=== PATIENT | female | born 1935 | race Caucasian/White ===

== ENCOUNTER → 2017-07-02 | Outpatient (REF) | payer MEDICARE ==
[~2017-07-02] MED LIST: AUGM875T28 PO; HYDR50TA70 PO; LIPI20TA PO; LORT5TAB PO; NYST50SS SS; OMEP20CA3 PO; QNAS80AE; SYNT50TA PO; TIMO25OPD OS; TIMO5OPG OS; TYLE325T5 PO
[2017-07-02 12:01] LABS: MEAN CORPUSCULAR HEMOGLOBIN 30.6 pg (27.0-33.0); RED CELL DISTRIBUTION WIDTH 12.8 % (11.5-14.5); WHITE BLOOD COUNT 6.6 K/mm3 (4.0-10.0)
[2017-07-02 12:20] LABS: ALBUMIN 3.7 GM/DL (3.2-5.2); ALBUMIN/GLOBULIN RATIO 1.12 (1.00-1.93); ALKALINE PHOSPHATASE 73 U/L (45-117); ALT/SGPT 22 U/L (12-78); ANION GAP 8 MEQ/L (8-16); AST/SGOT 23 U/L (15-37); BILIRUBIN,TOTAL 0.7 MG/DL (0.2-1.0); BLOOD UREA NITROGEN 10 MG/DL (7-18); CARBON DIOXIDE LEVEL 29 MEQ/L (21-32); CHLORIDE LEVEL 107 MEQ/L (98-107); CHOLESTEROL LEVEL 161 MG/DL (<200); GLOMERULAR FILTRATION RATE > 60.0 (>32); GLUCOSE, FASTING 98 MG/DL (83-110); SODIUM LEVEL 144 MEQ/L (136-145); TRIGLYCERIDES LEVEL 73 MG/DL (<150)
== END ==
LOC: M SFHCPLAZ 08:06
PROVIDERS: ATTEND Internal Medicine
DX: Z79.899 Other long term (current) drug therapy (principal); E78.00 Pure hypercholesterolemia, unspecified; E03.9 Hypothyroidism, unspecified

== ENCOUNTER → 2018-06-27 | Outpatient (REF) | payer MEDICARE ==
[2018-06-27 13:00] LABS: ALBUMIN 3.7 GM/DL (3.2-5.2); ALBUMIN/GLOBULIN RATIO 0.97 (1.00-1.93); ALKALINE PHOSPHATASE 73 U/L (45-117); ALT/SGPT 25 U/L (12-78); ANION GAP 7 MEQ/L (8-16); AST/SGOT 24 U/L (7-37); BILIRUBIN,TOTAL 0.7 MG/DL (0.2-1.0); BLOOD UREA NITROGEN 10 MG/DL (7-18); CALCIUM LEVEL 9.1 MG/DL (8.8-10.2); CARBON DIOXIDE LEVEL 31 MEQ/L (21-32); CHLORIDE LEVEL 107 MEQ/L (98-107); CHOLESTEROL LEVEL 152 MG/DL (<200); CHOLESTEROL RISK RATIO 2.533 (<5); GLOMERULAR FILTRATION RATE > 60.0 (>32); GLUCOSE, FASTING 100 MG/DL (70-100); HDL CHOLESTEROL 60 MG/DL (>40); LDL CHOLESTEROL 75.6 MG/DL (<100); NON-HDL-C 92 MG/DL; POTASSIUM SERUM 4.3 MEQ/L (3.5-5.1); SODIUM LEVEL 145 MEQ/L (136-145); TOTAL PROTEIN 7.5 GM/DL (6.4-8.2); TRIGLYCERIDES LEVEL 82 MG/DL (<150)
== END ==
LOC: M SFHCPLAZ 08:05
DX: E78.00 Pure hypercholesterolemia, unspecified (principal); E03.9 Hypothyroidism, unspecified
CPT/HCPCS: 84443

== ENCOUNTER → 2019-07-02 | Outpatient (REF) | payer MEDICARE ==
[~2019-07-02] MED LIST changes: -OMEP20CA3 PO; +OMEP20CA4 PO; +TIMO0.2525 OS; +TIMO0.5S7 OS; -TIMO25OPD OS; -TIMO5OPG OS
[2019-07-02 10:22] LABS: APPEARANCE, URINE CLEAR (CLEAR); BACTERIA, URINE AUTO 1+ (NEGATIVE); BILIRUBIN, URINE AUTO NEGATIVE (NEGATIVE); BLOOD, URINE BLOOD 1+ (NEGATIVE); COLOR, URINE YELLOW (YELLOW); GLUCOSE, URINE (UA) AUTO NEGATIVE (NEGATIVE); KETONE, URINE AUTO NEGATIVE (NEGATIVE); LEUKOCYTE ESTERASE, URINE AUTO TRACE (NEGATIVE); MUCUS, URINE SMALL (NEGATIVE); NITRITE, URINE AUTO NEGATIVE (NEGATIVE); PROTEIN, URINE AUTO NEGATIVE (NEGATIVE); RBC, URINE AUTO 4 /HPF (0-3); SPECIFIC GRAVITY URINE AUTO 1.011 (1.002-1.035); SQUAMOUS EPITHELIAL CELL UR AU 0 /HPF (0-6); UROBILINOGEN, URINE AUTO 0.2 mg/dL (0.0-2.0); WBC, URINE AUTO 1 /HPF (0-3)
[2019-07-02 10:23] LABS: HEMATOCRIT 41.9 % (36.0-47.0); HEMOGLOBIN 13.7 g/dl (12.0-15.5); MEAN CORPUSCULAR HEMOGLOBIN 29.7 pg (27.0-33.0); MEAN CORPUSCULAR HGB CONC 32.7 g/dl (32.0-36.5); MEAN CORPUSCULAR VOLUME 90.7 fl (80.0-96.0); PLATELET COUNT, AUTOMATED 214 10^3/uL (150-450); RED BLOOD COUNT 4.62 10^6/uL (4.00-5.40); WHITE BLOOD COUNT 7.2 10^3/uL (4.0-10.0)
[2019-07-02 10:57] LABS: ALBUMIN 3.6 GM/DL (3.2-5.2); ALT/SGPT 23 U/L (12-78); BILIRUBIN,TOTAL 0.6 MG/DL (0.2-1.0); BLOOD UREA NITROGEN 10 MG/DL (7-18); CALCIUM LEVEL 8.9 MG/DL (8.8-10.2); CARBON DIOXIDE LEVEL 30 MEQ/L (21-32); CHLORIDE LEVEL 107 MEQ/L (98-107); CHOLESTEROL LEVEL 148 MG/DL (<200); CHOLESTEROL RISK RATIO 2.642 (<5); CREATININE FOR GFR 0.72 MG/DL (0.55-1.30); GLOMERULAR FILTRATION RATE > 60.0 (>32); GLUCOSE, FASTING 100 MG/DL (70-100); HDL CHOLESTEROL 56 MG/DL (>40); LDL CHOLESTEROL 78 MG/DL (<100); NON-HDL-C 92 MG/DL; SODIUM LEVEL 143 MEQ/L (136-145); TOTAL PROTEIN 7.2 GM/DL (6.4-8.2); TRIGLYCERIDES LEVEL 70 MG/DL (<150)
[2019-07-02 11:01] LABS: TOTAL 25(OH) VITAMIN D 47.3 NG/ML (30.0-100.0)
== END ==
LOC: M SFHCPLAZ 08:31
PROVIDERS: ATTEND Internal Medicine
DX: Z79.899 Other long term (current) drug therapy (principal); E78.00 Pure hypercholesterolemia, unspecified; E03.9 Hypothyroidism, unspecified; R31.1 Benign essential microscopic hematuria; M85.89 Other specified disorders of bone density and structure, multiple sites

== ENCOUNTER → 2019-09-23 | Outpatient (CLI) | payer MEDICARE ==
--- NOTE | 2019-09-23 12:53 | REPMRS ---
Patient History The patient states she has not had a clinical breast exam in over a year. Patient is postmenopausal. Family history of unknown cancer in sister. 3D TOMOSYNTHESIS WAS PERFORMED. Digital Woman Screen Mammo: September 23, 2019 - Exam #: [id number] Bilateral CC and MLO view(s) were taken. Technologist: Yvonne Amado, Technologist Prior study comparison: September 04, 2017, bilateral digital mammo screening bilat, performed at [facility]. FINDINGS: The breast tissue is heterogeneously dense. This may lower the sensitivity of mammography. There has been no change in the appearance of the mammogram from the prior studies. There is a moderate amount of residual fibroglandular tissue which is fairly symmetric. There is no interval development of dominant mass, areas of architectural distortion, or clustered microcalcification typical of malignancy. Assessment: BI-RADS/ACR category 1 mammogram. Negative Mammogram. Recommendation Routine screening mammogram in 1 year (for women over age 40). This mammogram was interpreted with the aid of an FDA-approved computer-aided dectection system. Electronically Signed By: Carlo Casey MD 09/23/19 [id number]
--- NOTE | 2019-09-24 14:07 | DEXA ---
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 FOLLOW-UP: Recommendation for the next bone density exam: 2 years. ANDRES
== END ==
LOC: M WHC 11:02
PROVIDERS: ATTEND Internal Medicine
DX: M85.89 Other specified disorders of bone density and structure, multiple sites (principal); Z12.31 Encounter for screening mammogram for malignant neoplasm of breast

== ENCOUNTER → 2020-07-06 | Outpatient (REF) | payer MEDICARE ==
[~2020-07-06] MED LIST changes: +OMEP1CAP73 PO; -OMEP20CA4 PO
[2020-08-08 15:29] LABS: BASO % 0.5 % (0.0-1.0); EOS # 0.2 10^3/uL (0.0-0.5); EOS % 2.3 % (0.0-3.0); HEMATOCRIT 44.1 % (36.0-47.0); HEMOGLOBIN 14.3 g/dl (12.0-15.5); LYMPH # 3.7 10^3/uL (1.5-5.0); LYMPH % 41.8 % (24.0-44.0); MEAN CORPUSCULAR HGB CONC 32.4 g/dl (32.0-36.5); MEAN CORPUSCULAR VOLUME 92.6 fl (80.0-96.0); MONO # 0.9 10^3/uL (0.0-0.8); MONO % 10.4 % (0.0-5.0); NEUTROPHILS % 44.8 % (36.0-66.0); PLATELET COUNT, AUTOMATED 230 10^3/uL (150-450); RED BLOOD COUNT 4.76 10^6/uL (4.00-5.40); WHITE BLOOD COUNT 8.9 10^3/uL (4.0-10.0)
[2020-08-20 15:54] LABS: BLOOD UREA NITROGEN 8 MG/DL (7-18); CALCIUM LEVEL 9.7 MG/DL (8.8-10.2); CARBON DIOXIDE LEVEL 33 MEQ/L (21-32); CHLORIDE LEVEL 104 MEQ/L (98-107); CREATININE FOR GFR 0.84 MG/DL (0.55-1.30); GLOMERULAR FILTRATION RATE > 60.0 (>32); GLUCOSE, FASTING 113 MG/DL (70-100); POTASSIUM SERUM 3.9 MEQ/L (3.5-5.1); SODIUM LEVEL 141 MEQ/L (136-145)
[2020-08-20 15:55] LABS: ALBUMIN 3.9 GM/DL (3.2-5.2); ALT/SGPT 24 U/L (12-78); BILIRUBIN,TOTAL 0.6 MG/DL (0.2-1.0); CHOLESTEROL LEVEL 155 MG/DL (<200); CHOLESTEROL RISK RATIO 2.924 (<5); HDL CHOLESTEROL 53 MG/DL (>40); LDL CHOLESTEROL 82 MG/DL (<100); NON-HDL-C 102 MG/DL; TOTAL PROTEIN 7.8 GM/DL (6.4-8.2); TRIGLYCERIDES LEVEL 101 MG/DL (<150)
[2020-08-20 15:56] LABS: HEMOGLOBIN A1c 5.7 %
== END ==
LOC: M SFHCPLAZ 11:43
PROVIDERS: ATTEND Internal Medicine
DX: E03.9 Hypothyroidism, unspecified (principal); M85.89 Other specified disorders of bone density and structure, multiple sites; J30.9 Allergic rhinitis, unspecified; R53.82 Chronic fatigue, unspecified; E78.00 Pure hypercholesterolemia, unspecified; Z79.899 Other long term (current) drug therapy
CPT/HCPCS: 36415; 69210; 80053; 80061; 83036; 85025; G0463

== ENCOUNTER → 2021-06-27 | Outpatient (REF) | payer MEDICARE | LOC: M SFHCPLAZ 12:03 | PROVIDERS: ATTEND Internal Medicine | DX: R31.1 Benign essential microscopic hematuria (principal); E78.00 Pure hypercholesterolemia, unspecified; E03.9 Hypothyroidism, unspecified; M85.89 Other specified disorders of bone density and structure, multiple sites; Z86.010 Personal history of colon polyps ==

== ENCOUNTER → 2021-06-27 | Outpatient (CLI) | payer MEDICARE ==
[2021-06-27 15:31] LABS: BASO % 0.4 % (0.0-1.0); EOS # 0.1 10^3/uL (0.0-0.5); HEMATOCRIT 43.9 % (36.0-47.0); HEMOGLOBIN 14.4 g/dl (12.0-15.5); LYMPH # 4.1 10^3/uL (1.5-5.0); MEAN CORPUSCULAR HEMOGLOBIN 30.6 pg (27.0-33.0); MEAN CORPUSCULAR HGB CONC 32.8 g/dl (32.0-36.5); MEAN CORPUSCULAR VOLUME 93.2 fl (80.0-96.0); MONO # 0.8 10^3/uL (0.0-0.8); MONO % 8.7 % (2.0-8.0); NEUTROPHILS # 4.6 10^3/uL (1.5-8.5); NEUTROPHILS % 47.5 % (36.0-66.0); PLATELET COUNT, AUTOMATED 210 10^3/uL (150-450); RED BLOOD COUNT 4.71 10^6/uL (4.00-5.40); WHITE BLOOD COUNT 9.6 10^3/uL (4.0-10.0)
[2021-06-27 15:48] LABS: ALBUMIN 4.3 GM/DL (3.2-5.2); ALT/SGPT 27 U/L (12-78); BILIRUBIN,TOTAL 0.7 MG/DL (0.2-1.0); BLOOD UREA NITROGEN 10 MG/DL (7-18); CALCIUM LEVEL 8.9 MG/DL (8.8-10.2); CARBON DIOXIDE LEVEL 33 MEQ/L (21-32); CHLORIDE LEVEL 105 MEQ/L (98-107); CHOLESTEROL LEVEL 165 MG/DL (<200); CHOLESTEROL RISK RATIO 2.894 (<5); CREATININE FOR GFR 0.78 MG/DL (0.55-1.30); GLOMERULAR FILTRATION RATE > 60.0 (>32); GLUCOSE, FASTING 97 MG/DL (70-100); HDL CHOLESTEROL 57 MG/DL (>40); LDL CHOLESTEROL 93 MG/DL (<100); MAGNESIUM LEVEL 2.1 MG/DL (1.8-2.4); NON-HDL-C 108 MG/DL; POTASSIUM SERUM 3.9 MEQ/L (3.5-5.1); SODIUM LEVEL 140 MEQ/L (136-145); TOTAL PROTEIN 7.8 GM/DL (6.4-8.2); TRIGLYCERIDES LEVEL 77 MG/DL (<150)
== END ==
LOC: M PLALAB 12:21
PROVIDERS: ATTEND Internal Medicine
DX: R31.1 Benign essential microscopic hematuria (principal); E78.00 Pure hypercholesterolemia, unspecified; E03.9 Hypothyroidism, unspecified; M85.89 Other specified disorders of bone density and structure, multiple sites; Z86.010 Personal history of colon polyps
CPT/HCPCS: 36415; 80053; 80061; 82306; 83735; 84443; 85025; G0463

== ENCOUNTER → 2021-10-12 | Outpatient (CLI) | payer MEDICARE ==
[2021-10-12 15:49] LABS: BASO % 0.4 % (0.0-1.0); EOS # 0.1 10^3/uL (0.0-0.5); EOS % 0.7 % (0.0-3.0); HEMATOCRIT 44.9 % (36.0-47.0); HEMOGLOBIN 14.7 g/dl (12.0-15.5); LYMPH # 3.7 10^3/uL (1.5-5.0); LYMPH % 38.4 % (24.0-44.0); MEAN CORPUSCULAR HEMOGLOBIN 30.2 pg (27.0-33.0); MEAN CORPUSCULAR HGB CONC 32.7 g/dl (32.0-36.5); MEAN CORPUSCULAR VOLUME 92.4 fl (80.0-96.0); MONO # 0.9 10^3/uL (0.0-0.8); MONO % 9.8 % (2.0-8.0); NEUTROPHILS # 4.8 10^3/uL (1.5-8.5); NEUTROPHILS % 50.4 % (36.0-66.0); PLATELET COUNT, AUTOMATED 246 10^3/uL (150-450); RED BLOOD COUNT 4.86 10^6/uL (4.00-5.40); WHITE BLOOD COUNT 9.6 10^3/uL (4.0-10.0)
[2021-10-12 16:08] LABS: ALBUMIN 4.1 GM/DL (3.2-5.2); ALT/SGPT 22 U/L (12-78); BILIRUBIN,TOTAL 0.7 MG/DL (0.2-1.0); BLOOD UREA NITROGEN 7 MG/DL (7-18); CALCIUM LEVEL 10.1 MG/DL (8.8-10.2); CARBON DIOXIDE LEVEL 30 MEQ/L (21-32); CHLORIDE LEVEL 104 MEQ/L (98-107); CREATININE FOR GFR 0.82 MG/DL (0.55-1.30); GLOMERULAR FILTRATION RATE > 60.0 (>32); GLUCOSE, FASTING 107 MG/DL (70-100); LIPASE 156 U/L (73-393); POTASSIUM SERUM 3.8 MEQ/L (3.5-5.1); SODIUM LEVEL 141 MEQ/L (136-145); TOTAL PROTEIN 8.2 GM/DL (6.4-8.2)
== END ==
LOC: M PLALAB 11:39
PROVIDERS: ATTEND Physician Assistant
DX: R19.7 Diarrhea, unspecified (principal)

== ENCOUNTER → 2022-04-04 | Outpatient (CLI) | payer MEDICARE | LOC: M PLAIMG 08:34 | PROVIDERS: ATTEND Internal Medicine | DX: M70.61 Trochanteric bursitis, right hip (principal) ==